=== PATIENT | male | born 1985 | race Two or more races ===

== ENCOUNTER → 2019-07-27 17:08 | Outpatient (CLI) | payer OTHER, SELFPAY ==
[2019-07-27 20:02] LABS: Semen Viscosity Watery (Normal)
[2019-07-27 20:03] LABS: PH,Semen 8.5 (7.3-8.3); WBCs,Semen Moderate
[2019-07-27 20:11] LABS: 3Hr Motility Quality Weak Progression (Mod-Rapid); Sperm Morphology Normal (Normal)
[2019-07-27 20:12] LABS: Motility Quality Good Progression (Mod-Rapid)
[2019-07-27 20:15] LABS: 3Hr Sperm Motility 35 % (50-60); Sperm Motility 70 % (50-90)
[2019-07-27 20:37] LABS: Sperm Count 56 mil/mm3 (20-160)
== END ==
PROVIDERS: Visit Provider Family Medicine
DX: Z31.41 Encounter for fertility testing (principal)
CPT/HCPCS: 89320

== ENCOUNTER 2021-07-18 19:27 | Emergency (ER) | payer OTHER, SELFPAY ==
[2021-07-18 19:36] VITALS: BP 110/69; PULSE 64; RESP 16; TEMP 36.7; O2SAT 100; BMI 21.9
[2021-07-18 19:46] VITALS: BP 148/86; PULSE 69; RESP 14; TEMP 36.8; O2SAT 100; BMI 25.8
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
[2021-07-18 20:56] VITALS: BP 148/86; PULSE 69; RESP 14; TEMP 36.8; O2SAT 100
== END 2021-07-18 20:57 | disposition home or self-care (01) ==
PROVIDERS: Emergency Provider Nurse Practitioner Family
DX: R07.81 Pleurodynia (principal)
CPT/HCPCS: 71101; 99202; G0463

== ENCOUNTER 2021-12-29 18:09 | Emergency (ER) | payer OTHER, SELFPAY ==
[2021-12-29 18:10] VITALS: BP 135/80; PULSE 90; RESP 18; TEMP 37.6; O2SAT 99; BMI 24.3
[2021-12-29 18:40] LABS: UTC Influenza A Antigen Negative (Negative)
--- NOTE | 2021-12-29 18:40 | HMH.EDUTC ---
[facility] [place] Disposition Clinical Impression: Dehydration symptoms Disposition: Home, Self-Care Condition on Discharge: Good Instructions: DI for Dehydration -- Adult Additional Instructions: Monitor temperature. Seek treatment if fever develops. Follow-up immediately if new or worse symptoms worsen or no noticeable improvement over 48 hours. Increase fluids such as water, Gatorade, Powerade, juice or Pedialyte with limited formula/dietary in children No food is okay as long as you are drinking. Once ready to eat start bland such as bananas, rice, applesauce, toast. Contagious until no diarrhea, vomiting, fever times 48 hours without medication Avoid antidiarrheals unless told otherwise. Best to let the virus run its course. Follow-up immediately for new or worsening symptoms or no noticeable improvement over the next 48 hours. no motrin for pain follow up with primary care this week [phone] with Giorgio irwin Referrals: Provider,Referral, [Primary Care Provider] - Time of Disposition: 20:21 Medical Decision Making - Geo Inquiry Pt receiving controlled substance: No Vital Signs: 12/29/21 18:10 12/29/21 19:42 Temperature 99.7 F H 99.7 F H Temperature Source Oral Pulse Rate 90 Pulse Rate [Right Brachial] 90 Respiratory Rate 18 18 Blood Pressure 135/80 Blood Pressure [Right Arm] 135/80 Blood Pressure Mean [Right Arm] 98 Blood Pressure Source [Right Arm] Automatic Cuff Blood Pressure Position [Right Arm] Sitting 02 Sat by Pulse Oximetry 99 Oxygen Delivery Method Room Air - Lab Data Lab Results 12/29/21 18:22: Influenza Type A Ag Negative, Influenza Type B Ag Negative 12/29/21 18:54: WBC 5.7, RBC 4.02 L, Hgb 13.1 L, Hct 38.7 L, MCV 96.2 H, MCH 32.4 H, MCHC 33.7, RDW 13.0, Plt Count 49 L*, MPV 9.7, Neut % (Auto) 83.8 H, Lymph % (Auto) 8.7 L, [place] % (Auto) 6.2, Eos % (Auto) 0.9, Baso % (Auto) 0.3, Neut # (Auto) 4.8, Lymph # (Auto) 0.5 L, [place] # (Auto) 0.4, Eos # (Auto) 0.1, Baso # (Auto) 0.0 12/29/21 18:54: Sodium 137, Potassium 3.7, Chloride 106, Carbon Dioxide 25, Anion Gap 9.7, BUN 11, Creatinine 0.90, Estimated Creat Clear 119, Estimated GFR 97, Est GFR ( Amer) 117, Glucose 153 H, Calcium 8.4, Total Bilirubin 1.9 H, AST 60 H, ALT 142 H, Alkaline Phosphatase 178 H, Total Protein 6.8, Albumin 3.7, Globulin 3.1, Albumin/Globulin Ratio 1.2, Amylase 40, Lipase 48 Result diagrams: 12/29/21 18:54 12/29/21 18:54 Orders (Tests/Meds): ED MEDICATIONS Discontinued Medications Generic Name Dose Route Start Last Admin Trade Name Freq PRN Reason Stop Dose Admin Sodium Chloride 1,000 mls @ 999 mls/hr 12/29/21 18:45 12/29/21 18:56 Sod Chlor 0.9% 1000ml Bag IV 12/29/21 19:45 999 mls/hr .Q1H1M ULYSSES Administration ORDERS Category Date Time Status Hepatitis Panel (4) Stat Lab 12/29/21 18:59 Received [facility] [place] HPI - General Chief complaint: Urgent Treatment Center Stated complaint: weak,body aches,[place] Time Seen by Provider: 12/29/21 18:40 Mode of Arrival: Ambulatory Source of Information: Patient Limitations: No Limitations Description of Symptoms (Recalled from Triage Doc. by RN): PATIENT C/O BODY ACHES, FEVER AND CHILLS X 3 DAYS HEENT Symptoms (Recalled from RN notes): No Resp Symptoms (Recalled from RN notes): No Skin Symptoms (Recalled from RN notes): No MS Symptoms (Recalled from RN notes): Yes Functional Status (Recalled from RN notes): WNL - History of Present Illness Provider Complaint: 36 yr old male presents for fever,body aches and chills for 3 days, pt states he was drinking heavy 3 days ago and since then he has been unable to keep any food or liquids down. pt states this happened the last time when he was in [place] and he had a iv and he felt better instantly. - Related Data Allergies Allergy/AdvReac Type Severity Reaction Status Date / Time No Known Allergies Allergy Verified 04/13/18 17:40 - Worker's Comp Is this a Worker's Comp case?: No
[2021-12-29 18:41] LABS: UTC Influenza B Antigen Negative (Negative)
[2021-12-29 19:02] LABS: Eosinophils # 0.1 K/mm3 (0.0-0.4); Monocytes # 0.4 K/mm3 (0.1-1.0); Monocytes % 6.2 % (1.7-9.3)
[2021-12-29 19:06] LABS: Basophils % 0.3 % (0.1-2.0); Eosinophils % 0.9 % (0.1-12.0); Hematocrit 38.7 % (42.0-52.0); Hemoglobin 13.1 g/dL (14.1-18.0); Lymphocytes # 0.5 K/mm3 (0.7-4.5); Lymphocytes % 8.7 % (10-50); Mean Corpuscular HGB Conc 33.7 g/dL (31.8-35.4); Mean Corpuscular Hemoglobin 32.4 pg (27.0-31.2); Mean Corpuscular Volume 96.2 fl (80-94); Mean Platelet Volume 9.7 fl (7.4-10.4); Neutrophils # 4.8 K/mm3 (1.8-7.8); Neutrophils % 83.8 % (37.0-80.0); Red Blood Count 4.02 M/mm3 (4.60-6.20); White Blood Count 5.7 K/mm3 (4.8-10.8)
[2021-12-29 19:08] LABS: Platelet Count 49 K/mm3 (142-424)
[2021-12-29 19:09] LABS: Alanine Aminotransferase 142 U/L (12-78); Albumin Level 3.7 g/dl (3.5-5.0); Albumin/Globulin Ratio 1.2 (1.1-1.8); Alkaline Phosphatase 178 U/L (38-126); Amylase 40 U/L (30-110); Anion Gap 9.7 mEq/L (5-15); Aspartate Amino Transferase 60 U/L (17-59); Bilirubin,Total 1.9 mg/dl (0.2-1.3); Blood Urea Nitrogen 11 mg/dl (9-20); Calcium 8.4 mg/dl (8.4-10.2); Carbon Dioxide 25 mmol/L (22.0-30.0); Chloride 106 mmol/L (98-107); Creatinine Clearance Estimated 119 mL/min (50-200); Estimated Glomerular Filt Rate 97 ml/min (>60); GFR (African American) 117 ML/MIN (>60); Globulin 3.1 g/dL (1.3-3.2); Glucose 153 mg/dl (74-100); Lipase 48 U/L (23-300); Potassium 3.7 mmoL/L (3.5-5.1); Sodium 137 mmol/L (136-145); Total Protein,Serum 6.8 g/dl (6.3-8.2)
--- NOTE | 2021-12-29 19:17 | PC.NURSE ---
Johanna VAUGHAN APRN NOTIFIED OF PATIENT'S CRITICAL PLATELET LEVEL AT THIS TIME
[2021-12-29 19:42] VITALS: BP 135/80; PULSE 90; RESP 18; TEMP 37.6; O2SAT 99
[2021-12-29 20:53] LABS: INR 0.97 (0.9-1.1)
[2021-12-31 11:24] LABS: Hep A Ab, IgM Negative (Negative); Hepatitis B Core Antibody IgM Negative (Negative); Hepatitis B Surface Antigen Negative (Negative); Hepatitis C Antibody 0.1 s/co ratio (0.0-0.9)
== END 2021-12-29 20:42 | disposition home or self-care (01) ==
PROVIDERS: Emergency Provider Nurse Practitioner Family
DX: E86.0 Dehydration (principal); R50.9 Fever, unspecified; E53.1 Pyridoxine deficiency; E51.9 Thiamine deficiency, unspecified; M79.10 Myalgia, unspecified site
CPT/HCPCS: 80053; 80074; 82150; 83690; 85025; 85610; 87380; 87804; 96361; 96365; 99213; G0463

== ENCOUNTER → 2022-01-14 09:03 | Outpatient (CLI) | payer OTHER, SELFPAY ==
--- NOTE | 2022-01-14 09:03 | US_ITS ---
FINAL REPORT CLINICAL HISTORY: Transaminitis FINDINGS: Sonographic images of the right upper quadrant were obtained. The pancreas is partially obscured.The liver has an unremarkable appearance. There is sludge in the gallbladder. There are no gallstones. There is no evidence of biliary ductal dilatation.The common duct measures 1 mm. Limited images of the right kidney are unremarkable. IMPRESSION: Sludge in the gallbladder. Reviewed, Interpreted and Dictated by Shreyas Ken III, MD Transcribed by Rajiv Rivera Authenticated by Shreyas Ken III, MD on 01/14/2022 03:16:56 PM [facility]
== END ==
PROVIDERS: PCP Nurse Practitioner Family; Visit Provider Nurse Practitioner Family
DX: R74.01 Elevation of levels of liver transaminase levels (principal)
CPT/HCPCS: 76705